=== PATIENT | male | born 1995 | race Caucasian/White ===

== ENCOUNTER 2016-04-27 19:57 | Emergency (ER) | payer OTHER ==
[~2016-04-27] VITALS: Ht 177.8 cm; Wt 79.4 kg
[2016-04-27 21:47] VITALS: BP 109/69
== END 2016-04-27 21:55 | disposition home or self-care (01) ==
LOC: ER 19:57
DX: S61.214A Laceration without foreign body of right ring finger without damage to nail, initial encounter (principal); F17.210 Nicotine dependence, cigarettes, uncomplicated; F12.10 Cannabis abuse, uncomplicated; Z88.0 Allergy status to penicillin; W26.0XXA Contact with knife, initial encounter; Y93.89 Activity, other specified; Y92.89 Other specified places as the place of occurrence of the external cause; Y99.8 Other external cause status

== ENCOUNTER 2018-03-12 04:32 | Emergency (ER) | payer BC, OTHER ==
[~2018-03-12] VITALS: Ht 180.3 cm; Wt 77.1 kg
[2018-03-12] MEDS ORDERED: IBUPROFEN 400400 M2 PO (05:01)
[2018-03-12] MEDS ORDERED: AZITHROMYCIN 2250 MG PO (05:01)
[2018-03-12] MEDS ORDERED: SUPHEDRINE30 MG PO (05:01)
[2018-03-12 05:28] VITALS: BP 107/68
== END 2018-03-12 05:20 | disposition home or self-care (01) ==
LOC: ER 04:32
DX: H66.92 Otitis media, unspecified, left ear (principal); F17.210 Nicotine dependence, cigarettes, uncomplicated; Z88.0 Allergy status to penicillin